=== PATIENT | female | born 1935 | race Caucasian/White ===

== ENCOUNTER → 2017-12-15 | Outpatient (CLI) | payer MEDICARE, OTHER ==
[~2017-12-15] MED LIST: ALBU8.5H IH; AMIO200T47 PO; AMLO-96 PO; CELE100C79 PO; CHOL200074 PO; CHOL500016 PO; CRAN1CAP14 PO; DEN60I SUBQ; DILT30TA63 PO; FOLI-68 PO; FOLI0.4T56 PO; LEVO-317 PO; LEVO150T78 PO; LEVO175T42 PO; LEVO200T50 PO; METH2.5T43 PO; METO-253 PO; PRAV40TA78 PO; WARF1TAB63 PO; WARF2TAB81 PO
== END ==
LOC: LAB 10:34
PROVIDERS: ATTEND Internal Medicine
DX: E03.9 Hypothyroidism, unspecified (principal)
CPT/HCPCS: 36415; 84443

== ENCOUNTER → 2018-01-13 | Outpatient (CLI) | payer MEDICARE, OTHER ==
[~2018-01-13] MED LIST changes: +CRAN1CAP9 PO; +FOLI0.8T29 PO; +LEVO-3 PO; +WARF1TAB15 PO; -WARF1TAB63 PO
== END ==
LOC: LAB 15:19
PROVIDERS: ATTEND Family Medicine
DX: E03.9 Hypothyroidism, unspecified (principal)
CPT/HCPCS: 36415; 84439; 84443

== ENCOUNTER → 2018-03-10 | Outpatient (CLI) | payer MEDICARE, OTHER ==
[~2018-03-10] MED LIST changes: +DILT120C18 PO; +LEVO88TA45 PO; +WARF2TAB13 PO; -WARF2TAB81 PO
== END ==
LOC: LAB 16:48
PROVIDERS: ATTEND Pharmacist Pharmacotherapy
DX: E03.9 Hypothyroidism, unspecified (principal)
CPT/HCPCS: 36415; 84443

== ENCOUNTER → 2018-04-29 | Outpatient (CLI) | payer MEDICARE, OTHER ==
[2018-04-29 16:37] LABS: PLATELET COUNT, AUTOMATED 161 K/uL (150-450)
== END ==
LOC: LAB 16:14
PROVIDERS: ATTEND Family Medicine
DX: E03.9 Hypothyroidism, unspecified (principal); I48.91 Unspecified atrial fibrillation; R42 Dizziness and giddiness
CPT/HCPCS: 36415; 82040; 82247; 82310; 82374; 82435; 82565; 82947; 84075; 84132; 84155; 84295; 84443; 84450; 84460; 84520; 85025

== ENCOUNTER → 2018-06-11 | Outpatient (CLI) | payer MEDICARE, OTHER ==
[~2018-06-11] MED LIST changes: -AMIO200T47 PO; +AMIO200T49 PO; +LEVO75TA73 PO
== END ==
LOC: LAB 09:46
PROVIDERS: ATTEND Family Medicine
DX: E03.9 Hypothyroidism, unspecified (principal)
CPT/HCPCS: 36415; 84443

== ENCOUNTER → 2018-08-03 | Outpatient (CLI) | payer MEDICARE, OTHER ==
[~2018-08-03] MED LIST changes: +AMLO-111 PO; -AMLO-96 PO
== END ==
LOC: US 01:05
PROVIDERS: ATTEND Internal Medicine
DX: I35.0 Nonrheumatic aortic (valve) stenosis (principal); I25.10 Atherosclerotic heart disease of native coronary artery without angina pectoris
CPT/HCPCS: 93306

== ENCOUNTER → 2018-08-31 | Outpatient (CLI) | payer MEDICARE, OTHER ==
[~2018-08-31] MED LIST changes: +DRON400T4 PO; +FLU180SY11 IM
--- NOTE | 2018-08-31 11:08 | RADIOLOGY IMAGING REPORT ---
FACILITY: [facility] - [place] PATIENT NAME: Ursula Baez : 1935 MR: [id number] V: [id number] EXAM DATE: ORDERING PHYSICIAN: EZEQUIEL DE LA GARZA TECHNOLOGIST: Location: [facility] - [place] Patient: Ursula Baez : 1935 Visit/Account:[id number] Date of Sevice: 08/31/2018 DEXA Scan Clinical history: Osteoporosis, postmenopausal. Comparison: None available. LUMBAR SPINE: The bone mineral density (BMD) measured from L1-L4 correlates with a Z-score 0.6 and a T-score of -1 which is Normal as defined by the World Health Organization. The corresponding risk of fracture in t he lumbar spine is 2 times increased compared with a young adult reference population. HIP: Bone mineral density (BMD) measured in the Left total hip region correlates with a Z-score 0.4 and a T-score of is 2.4 which is osteopenia as defined by the World Health Organization. The corresponding risk of fracture in the hip is 4-6 times increased compared with a young adult reference population. T score left femoral neck -2.1 Bone mineral density (BMD) measured in the Femoral Neck region measures 0.743 g/cm2. Impression: 1. Lumbar spine: Normal. 2. Left Hip: Osteopenia. 3. Femoral Neck: Bone Mineral Density is 0.743 g/cm2 The next DEXA scan of this patient should include the following sites: L1-L4 and the left hip. FRAX? WHO Fracture Risk Assessment Tool link: <http://www.shef.ac.uk/FRAX/tool.jsp?locationValue=9> PLEASE NOTE: 1) The World Health Organization defines low BMD as follows: T-score Normal > -1 Osteopenia < -1 and > -2.5 Osteoporosis < -2.5 without fractures Established osteoporosis < -2.5 with fractures 2) In general, you may wish to consider: Diagnosis Treatment Follow-up DEXA Normal BMD Prevention 2-3 years Osteopenia Prevention/therapy 1-2 years Osteoporosis Therapy Yearly 3) Fracture risk estimated from the T-score is more accurate for vertebral fractures (often spontane ous) than for hip fractures. Report Dictated By: Abi Westfall MD at 08/31/2018 11:03 AM Report E-Signed By: Abi Westfall MD at 08/31/2018 11:04 AM DARRYN:ROSY
== END ==
LOC: RAD 00:48
PROVIDERS: ATTEND Family Medicine
DX: M85.80 Other specified disorders of bone density and structure, unspecified site (principal)
CPT/HCPCS: 77080

== ENCOUNTER → 2018-09-21 | Outpatient (CLI) | payer MEDICARE, OTHER ==
[2018-09-21 09:00] LABS: INR 2.09
== END ==
LOC: LAB 08:28
PROVIDERS: ATTEND Internal Medicine
DX: Z51.81 Encounter for therapeutic drug level monitoring (principal); I48.1 Persistent atrial fibrillation; Z79.01 Long term (current) use of anticoagulants
CPT/HCPCS: 36415; 85027; 85610

== ENCOUNTER → 2018-09-28 | Outpatient (CLI) | payer MEDICARE, OTHER ==
[2018-09-28 08:24] LABS: INR 2.61
== END ==
LOC: LAB 08:01
PROVIDERS: ATTEND Internal Medicine
DX: Z51.81 Encounter for therapeutic drug level monitoring (principal); Z79.01 Long term (current) use of anticoagulants; I48.1 Persistent atrial fibrillation
CPT/HCPCS: 36415; 85610

== ENCOUNTER → 2018-10-05 | Outpatient (CLI) | payer MEDICARE, OTHER ==
[2018-10-05 08:20] LABS: INR 2.79
== END ==
LOC: LAB 07:41
PROVIDERS: ATTEND Internal Medicine
DX: Z51.81 Encounter for therapeutic drug level monitoring (principal); Z79.01 Long term (current) use of anticoagulants; I48.1 Persistent atrial fibrillation
CPT/HCPCS: 36415; 85610

== ENCOUNTER → 2018-10-16 | Outpatient (CLI) | payer MEDICARE, OTHER ==
[2018-10-16 09:14] LABS: INR 1.16
== END ==
LOC: LAB 08:36
PROVIDERS: ATTEND Internal Medicine
DX: Z51.81 Encounter for therapeutic drug level monitoring (principal); Z79.01 Long term (current) use of anticoagulants; I48.1 Persistent atrial fibrillation
CPT/HCPCS: 36415; 85610

== ENCOUNTER → 2018-12-21 | Outpatient (CLI) | payer MEDICARE, OTHER ==
[~2018-12-21] MED LIST changes: -AMLO-111 PO; +AMLO-125 PO; +DILT120C12 PO; -DILT120C18 PO; +LEVO50TA86 PO
[2018-12-21 09:58] LABS: PLATELET COUNT, AUTOMATED 198 K/uL (150-450)
== END ==
LOC: LAB 09:46
PROVIDERS: ATTEND Family Medicine
DX: I48.91 Unspecified atrial fibrillation (principal); M81.0 Age-related osteoporosis without current pathological fracture; E03.9 Hypothyroidism, unspecified
CPT/HCPCS: 36415; 82306; 82310; 82374; 82435; 82565; 82947; 84132; 84295; 84443; 84520; 85025

== ENCOUNTER → 2019-01-20 | Outpatient (CLI) | payer MEDICARE, OTHER | LOC: RESP 19:39 | PROVIDERS: ATTEND Internal Medicine | DX: G47.30 Sleep apnea, unspecified (principal); G47.61 Periodic limb movement disorder ==

== ENCOUNTER → 2019-02-01 | Outpatient (CLI) | payer MEDICARE, OTHER | LOC: LAB 10:14 | PROVIDERS: ATTEND Family Medicine | DX: E03.9 Hypothyroidism, unspecified (principal) | CPT/HCPCS: 36415; 84443 ==

== ENCOUNTER 2019-02-05 10:17 | Emergency (ER) | payer MEDICARE, OTHER ==
--- NOTE | 2019-02-05 10:21 | ER Report ---
History and Physical Time Seen By MD: 10:21 HPI/ROS CHIEF COMPLAINT: Dizziness; "Not thinking straight" HISTORY OF PRESENT ILLNESS: Patient is a very pleasant 83-year-old female who presents the emergency department stating that she just doesn't feel well. She reports some intermittent dizziness along with "not thinking straight" she states that the symptoms have been going on for the past 3 weeks or so. She states that she's been "under a lot of stress lately". She denies any chest pain or shortness of breath. She denies abdominal pain. She denies any urinary frequency or urinary symptoms. She denies vaginal bleeding. Patient is currently on Coumadin for history of paroxysmal atrial fibrillation last INR was reported to be "normal". She also recently had a TSH drawn this past Friday which I will check. He denies any medical injuries or falls. She denies any other symptoms including cough or cold or upper respiratory symptoms. REVIEW OF SYSTEMS: Constitutional: No fever, no chills. Eyes: No discharge. ENT: No sore throat. Cardiovascular: No chest pain, no palpitations. Respiratory: No cough, no shortness of breath. Gastrointestinal: No abdominal pain, no vomiting. Genitourinary: No hematuria. Musculoskeletal: No back pain. Skin: No rashes. Neurological: No headache. Dizziness Allergies: Coded Allergies: Penicillins (Verified Allergy, Severe, anaphylaxis, hives, 02/05/19) Sulfa (Sulfonamide Antibiotics) (Verified Allergy, Intermediate, itching, 02/05/19) Home Meds Active Scripts Levothyroxine Sodium (LEVOTHYROXINE SODIUM) 50 Mcg Tablet, 50 MCG PO QDAY for 90 Days, #90 TAB 3 Refills Prov:EZEQUIEL PACHECO MD 12/22/18 Warfarin Sodium (WARFARIN SODIUM) 1 Mg Tablet, 2-3 TAB PO QDAY for 90 Days, #228 TAB 3 Refills 2-3 tab po q d, or as directed based on INR Prov:PREM SCOTT PHARMD 08/18/18 Reported Medications Acetaminophen (TYLENOL EXTRA STRENGTH) 500 Mg Tablet, 1000 MG PO PRN, TAB 02/05/19 Folic Acid (FOLIC ACID) 0.8 Mg Tablet, 1 TAB PO DAILY 01/13/18 Cholecalciferol (Vitamin D3) (VITAMIN D3) 5,000 Unit Capsule, 1 CAP PO DAILY, CAPSULE 01/13/18 Cranberry Extract/Vit C (AZO CRANBERRY SOFTGEL) 1 Each Capsule, 1 EACH PO DAILY, CAPSULE 01/13/18 Methotrexate Sodium (METHOTREXATE) 2.5 Mg Tablet, 7 TAB PO QWEEK Takes 7 tabs every Friday01/14/17 Albuterol Sulfate 90 Mcg/Act (PROAIR HFA 90 MCG/ACT) 8.5 Gm Hfa.aer.ad, 2 PUFF IH Q4-6H PRN for asthma, INHALER 01/14/17 Denosumab (PROLIA) 60 Mg/1 Ml Injs, 60 MG SUBQ q6mo 01/14/17 Past Medical/Surgical History Past medical history for paroxysmal fibrillation, hyperlipidemia, asthma, rheumatoid arthritis, hypothyroidism, surgical history for hysterectomy, carpal tunnel release status post cardiac ablation Smoking Status: Never Smoker Exposure to Second Hand Smoke?: Yes Constitutional Vital Sign - Last 24 Hours 02/05/19 02/05/19 02/05/19 02/05/19 10:20 10:30 10:45 11:00 Temp 98.0 Pulse 90 85 81 Resp 16 23 8 B/P (MAP) 149/97 129/91 (104) 126/81 (96) Pulse Ox 94 95 94 94 O2 Delivery Room Air 02/05/19 02/05/19 11:15 11:45 Pulse 77 78 Resp 10 26 B/P (MAP) 130/76 (94) 137/77 (97) Pulse Ox 93 95 Physical Exam General/Constitutional: Patient is awake, alert, nontoxic and in no acute respiratory distress. Head: Normocephalic and atraumatic. Eyes: Conjunctival clear, Pupils are equal and reactive to light. Extraocular muscles are intact and symmetrical. Sclera are clear and anicteric. Ears:External canals are clear. Tympanic membranes are clear with normal landmarks and light reflex. Nares: No rhinorrhea or bleeding. Turbinates are pink and moist. Oropharyngeal: Mucous membranes are moist. There is no pharyngeal erythema or exudate. There are no palatal petechiae. Uvula is midline and symmetrical. Neck: Supple, no adenopathy. Cardiovascular: Heart is regular rate and rhythm without audible murmurs, rubs or gallops. Pulmonary: Lungs are clear to auscultation bilaterally. There are no wheezes, rales, or rhonchi. Chest rise is symmetrical Abdomen: Soft, nontender, no guarding or peritoneal signs. Extremities: No gross deformities, No peripheral cyanosis. Able to move all 4 extremities. Neuro: Alert and oriented X3, Cranial nerves 2 thru 12 are intact and symmetrical. Patient has normal gait. Skin: No rashes, skin is warm dry and well perfused. Medical Decision Making Data Points Result Diagram: 02/05/19 1027 02/05/19 1027 Laboratory Hematology Test 02/05/19 10:27 02/05/19 10:54 Red Blood Count 4.55 M/uL (4.17-5.56) Mean Corpuscular Volume 99.1 fL (80.0-96.0) Mean Corpuscular Hemoglobin 34.0 pg (26.0-33.0) Mean Corpuscular Hemoglobin Concent 34.3 g/dL (32.0-36.0) Red Cell Distribution Width 13.7 % (11.5-14.5) Mean Platelet Volume 7.8 fL (7.2-11.1) Neutrophils (%) (Auto) 60.6 % (39.4-72.5) Lymphocytes (%) (Auto) 26.5 % (17.6-49.6) Monocytes (%) (Auto) 10.7 % (4.1-12.4) Eosinophils (%) (Auto) 1.4 % (0.4-6.7) Basophils (%) (Auto) 0.8 % (0.3-1.4) Nucleated RBC Relative Count (auto) 0.1 /100WBC Neutrophils # (Auto) 3.7 K/uL (2.0-7.4) Lymphocytes # (Auto) 1.6 K/uL (1.3-3.6) Monocytes # (Auto) 0.6 K/uL (0.3-1.0) Eosinophils # (Auto) 0.1 K/uL (0.0-0.5) Basophils # (Auto) 0.0 K/uL (0.0-0.1) Nucleated RBC Absolute Count (auto) 0.00 K/uL Prothrombin Time 22.3 seconds (12.0-14.4) Prothromb Time International Ratio 1.92 Activated Partial Thromboplast Time 37 seconds (23-35) Sodium Level 138 mmol/L (137-145) Potassium Level 4.0 mmol/L (3.5-5.0) Chloride Level 107 mmol/L (98-107) Carbon Dioxide Level 23 mmol/L (22-31) Blood Urea Nitrogen 17 mg/dl (7-18) Creatinine 0.80 mg/dl (0.52-1.04) Glomerular Filtration Rate Calc > 60.0 Random Glucose 102 mg/dl (75-110) Calcium Level 9.3 mg/dl (8.4-10.2) Total Bilirubin 1.2 mg/dl (0.2-1.3) Aspartate Amino Transf (AST/SGOT) 49 U/L (0-35) Alanine Aminotransferase (ALT/SGPT) 50 U/L (0-56) Alkaline Phosphatase 54 U/L (0-126) Troponin I < 0.012 ng/ml Total Protein 7.4 g/dl (6.3-8.2) Albumin 4.6 g/dl (3.5-5.0) Urine Color Straw Urine Clarity Clear Urine pH 5.0 pH (4.8-9.5) Urine Specific [place] 1.006 Urine Protein Negative mg/dL (NEGATIVE) Urine Glucose (UA) Negative mg/dL (NEGATIVE) Urine Ketones Negative mg/dL (NEGATIVE) Urine Blood Small (NEGATIVE) Urine Nitrite Negative (NEGATIVE) Urine Bilirubin Negative (NEGATIVE) Urine Urobilinogen Negative mg/dL (0.2-1.9) Urine Leukocyte Esterase Trace (NEGATIVE) Urine RBC 1 /HPF (0-2/HPF) Urine WBC 3 /HPF (0-5/HPF) Urine Squamous Epithelial Cells Many /LPF (</=FEW) Urine Transitional Epithelial Cells Few /LPF (NONE-FEW) Urine Bacteria Few /HPF (NONE-FEW) Urine Mucus None /HPF (NONE-FEW) Chemistry Test 02/05/19 10:27 02/05/19 10:54 White Blood Count 6.1 k/uL (4.5-11.0) Red Blood Count 4.55 M/uL (4.17-5.56) Hemoglobin 15.5 g/dL (12.0-16.0) Hematocrit 45.1 % (34.0-47.0) Mean Corpuscular Volume 99.1 fL (80.0-96.0) Mean Corpuscular Hemoglobin 34.0 pg (26.0-33.0) Mean Corpuscular Hemoglobin Concent 34.3 g/dL (32.0-36.0) Red Cell Distribution Width 13.7 % (11.5-14.5) Platelet Count 198 K/uL (150-450) Mean Platelet Volume 7.8 fL (7.2-11.1) Neutrophils (%) (Auto) 60.6 % (39.4-72.5) Lymphocytes (%) (Auto) 26.5 % (17.6-49.6) Monocytes (%) (Auto) 10.7 % (4.1-12.4) Eosinophils (%) (Auto) 1.4 % (0.4-6.7) Basophils (%) (Auto) 0.8 % (0.3-1.4) Nucleated RBC Relative Count (auto) 0.1 /100WBC Neutrophils # (Auto) 3.7 K/uL (2.0-7.4) Lymphocytes # (Auto) 1.6 K/uL (1.3-3.6) Monocytes # (Auto) 0.6 K/uL (0.3-1.0) Eosinophils # (Auto) 0.1 K/uL (0.0-0.5) Basophils # (Auto) 0.0 K/uL (0.0-0.1) Nucleated RBC Absolute Count (auto) 0.00 K/uL Prothrombin Time 22.3 seconds (12.0-14.4) Prothromb Time International Ratio 1.92 Activated Partial Thromboplast Time 37 seconds (23-35) Glomerular Filtration Rate Calc > 60.0 Calcium Level 9.3 mg/dl (8.4-10.2) Total Bilirubin 1.2 mg/dl (0.2-1.3) Aspartate Amino Transf (AST/SGOT) 49 U/L (0-35) Alanine Aminotransferase (ALT/SGPT) 50 U/L (0-56) Alkaline Phosphatase 54 U/L (0-126) Troponin I < 0.012 ng/ml Total Protein 7.4 g/dl (6.3-8.2) Albumin 4.6 g/dl (3.5-5.0) Urine Color Straw Urine Clarity Clear Urine pH 5.0 pH (4.8-9.5) Urine Specific [place] 1.006 Urine Protein Negative mg/dL (NEGATIVE) Urine Glucose (UA) Negative mg/dL (NEGATIVE) Urine Ketones Negative mg/dL (NEGATIVE) Urine Blood Small (NEGATIVE) Urine Nitrite Negative (NEGATIVE) Urine Bilirubin Negative (NEGATIVE) Urine Urobilinogen Negative mg/dL (0.2-1.9) Urine Leukocyte Esterase Trace (NEGATIVE) Urine RBC 1 /HPF (0-2/HPF) Urine WBC 3 /HPF (0-5/HPF) Urine Squamous Epithelial Cells Many /LPF (</=FEW) Urine Transitional Epithelial Cells Few /LPF (NONE-FEW) Urine Bacteria Few /HPF (NONE-FEW) Urine Mucus None /HPF (NONE-FEW) Coagulation Test 02/05/19 10:27 Prothrombin Time 22.3 seconds Prothromb Time International Ratio 1.92 Activated Partial Thromboplast Time 37 seconds Urinalysis Test 02/05/19 10:54 Urine Color Straw Urine Clarity Clear Urine pH 5.0 pH (4.8-9.5) Urine Specific [place] 1.006 Urine Protein Negative mg/dL (NEGATIVE) Urine Glucose (UA) Negative mg/dL (NEGATIVE) Urine Ketones Negative mg/dL (NEGATIVE) Urine Blood Small (NEGATIVE) Urine Nitrite Negative (NEGATIVE) Urine Bilirubin Negative (NEGATIVE) Urine Urobilinogen Negative mg/dL (0.2-1.9) Urine Leukocyte Esterase Trace (NEGATIVE) Urine RBC 1 /HPF (0-2/HPF) Urine WBC 3 /HPF (0-5/HPF) Urine Squamous Epithelial Cells Many /LPF (</=FEW) Urine Transitional Epithelial Cells Few /LPF (NONE-FEW) Urine Bacteria Few /HPF (NONE-FEW) Urine Mucus None /HPF (NONE-FEW) EKG/Imaging EKG Interpretation EKG shows normal sinus rhythm. Monitor Interpretation: Normal Sinus Rhythm ED Course/Re-evaluation Clinical Indication for ER IV: IV Access ED Course Patient with very nonspecific symptoms. We'll perform medical screening exam, CT of the head check urinalysis. Decision to Disposition Date: Feb 05, 2019 Decision to Disposition Time: 11:50 Depart Departure Latest Vital Signs Vital Signs Date Time Temp Pulse Resp B/P (MAP) Pulse Ox O2 Delivery O2 Flow Rate FiO2 02/05/19 11:45 78 26 137/77 (97) 95 02/05/19 10:20 98.0 Room Air Impression: Primary Impression: Dizziness Condition: Condition Unchanged Disposition: HOME OR SELF-CARE Referrals: EZEQUIEL PACHECO MD (PCP) schedule a follow up appointment in the next 1-[address] Pacheco for reevaluation and to discuss stopping the coumadin since you are no longer in atrial fibrillation Patient Instructions: Dizziness (ED) IVAN BROWNE MD Feb 05, 2019 10:21
[2019-02-05] MEDS ORDERED: ACET500T68 PO (10:28)
[2019-02-05 10:56] LABS: INR 1.92
[2019-02-05 10:58] LABS: PLATELET COUNT, AUTOMATED 198 K/uL (150-450)
--- NOTE | 2019-02-05 11:20 | RADIOLOGY IMAGING REPORT ---
FACILITY: [facility] - [place] PATIENT NAME: Ursula Baez : 1935 MR: [id number] V: [id number] EXAM DATE: ORDERING PHYSICIAN: IVAN BROWNE TECHNOLOGIST: Location: [facility] - [place] Patient: Ursula Baez : 1935 Visit/Account:[id number] Date of Sevice: 02/05/2019 CHEST PA LAT INDICATION: Chest Pain COMPARISON: 07/17/2017 FINDINGS: Heart size within normal limits. There is no focal infiltrate or lobar consolidation. There is no pneumothorax or pleural effusion. IMPRESSION: 1. No acute cardiopulmonary process. Report Dictated By: Samson Reese at 02/05/2019 11:15 AM Report E-Signed By: Samson Reese at 02/05/2019 11:15 AM [id number]
--- NOTE | 2019-02-05 11:22 | RADIOLOGY IMAGING REPORT ---
[place] [facility] [place] Ursula aBez : 1935 MR: [id number] V: [id number] EXAM DATE: ORDERING PHYSICIAN: IVAN BROWNE TECHNOLOGIST: Location: [facility] - [place] Patient: Ursula Baez : 1935 Visit/Account:[id number] Date of Sevice: 02/05/2019 EXAMINATION: CT head without IV contrast HISTORY: Dizziness. COMPARISON: CT head from 07/17/2017. TECHNIQUE: Contiguous axial images were obtained from the skull base to the vertex without intraven ous contrast. Sagittal and coronal reformatted images are also submitted. One of the following dose optimization techniques was utilized in the performance of this exam: Autom ated exposure control; adjustment of the mA and/or kV according to the patient's size; or use of an i terative reconstruction technique. Specific details can be referenced in the facility's radiology C T exam operational policy. FINDINGS: Brain volume: Mild generalized atrophy with associated concordant prominence of the ventricular syst em. Ventricles: Normal. Acute ischemic changes: None. Hemorrhage: No acute intracranial hemorrhage. Masses/edema: None. Aponte-white: Negative. White matter: Patchy hypodensities in the deep white matter bilaterally. Vessels: Negative. Extra-axial: Negative. Calvarium/scalp: Negative. Skull base/visualized face: Negative. Visualized sinuses/orbits: Previous lens surgery bilaterally. IMPRESSION: 1. No intracranial mass lesion or hemorrhage. No CT evidence of acute infarct. 2. [id number] nonspecific white matter disease suspicious for chronic small vessel ischemia, un changed. Report Dictated By: Bev Seymour MD at 02/05/2019 11:16 AM Report E-Signed By: Bev Seymour MD at 02/05/2019 11:18 AM [id number]
--- NOTE | 2019-02-05 11:22 | EKG ---
FACILITY: [facility] PATIENT NAME: DAVID PICKENS : [id number] MR: [id number] V: [id number] EXAM DATE: ORDERING PHYSICIAN: IVAN BROWNE TECHNOLOGIST: DOMINGUEZ Burton Reason : NEURO Blood Pressure : / mmHG Vent. Rate : 085 BPM Atrial Rate : 085 BPM P-R Int : 152 ms QRS Dur : 086 ms QT Int : 360 ms P-R-T Axes : 072 -34 034 degrees QTc Int : 428 ms Normal sinus rhythm Left axis deviation Abnormal ECG When compared with ECG of 17-JUL-2017 17:18, Vent. rate has increased BY 34 BPM Confirmed by VANESA HANSON ([id number]) on 02/06/2019 6:47:09 AM Referred By: Confirmed By:VANESA HANSON
[2019-02-05 11:45] VITALS: BP 137/77
== END 2019-02-05 12:00 | disposition home or self-care (01) ==
LOC: ER 10:20
DX: R42 Dizziness and giddiness (principal); I48.2 Chronic atrial fibrillation; Z79.01 Long term (current) use of anticoagulants
CPT/HCPCS: 70450; 71046; 81001; 82040; 82247; 82310; 82374; 82435; 82565; 82947; 84075; 84132; 84155; 84295; 84450; 84460; 84484; 84520; 85025; 85610; 85730; 87088; 93005; 99284

== ENCOUNTER → 2019-06-09 | Outpatient (CLI) | payer MEDICARE, OTHER ==
[~2019-06-09] MED LIST changes: +ACET500T68 PO; +CEFP250T27 PO; +FLUT16SP19
== END ==
LOC: AUD 13:00
PROVIDERS: ATTEND Family Medicine
DX: R42 Dizziness and giddiness (principal); H91.90 Unspecified hearing loss, unspecified ear
CPT/HCPCS: 92557; 92567